=== PATIENT | male | born 1975 | race Two or more races ===

== ENCOUNTER → 2019-11-02 | Outpatient (CLI) | payer MEDICAID ==
--- NOTE | 2019-11-02 15:14 | US ---
EXAMINATION TYPE: US kidneys/renal and bladder DATE OF EXAM: 11/02/2019 COMPARISON: NONE CLINICAL HISTORY: R31.9 Blood in urine.R10.9 L flank pain. Left flank pain EXAM MEASUREMENTS: Right Kidney: 10.1 x 4.1 x 4.0 cm Left Kidney: 11 x 5.7 x 5.5 cm Right Kidney: wnl Left Kidney: wnl Bladder: wnl Bilateral Jets seen: Yes There is no evidence for hydronephrosis at this point in time. No nephrolithiasis is seen. No luis angel s are identified. The urinary bladder is anechoic. Bilateral ureteral jets are seen. Cortical medullary differentiation is maintained within the kidneys. IMPRESSION: Normal renal ultrasound
== END | disposition home or self-care (01) ==
LOC: RADUSWWP 14:37
PROVIDERS: ATTEND Family Medicine
DX: R31.9 Hematuria, unspecified (principal)
CPT/HCPCS: 76770

== ENCOUNTER → 2019-11-15 | Outpatient (CLI) | payer MEDICAID ==
[2019-11-15 11:11] LABS: African American GFR (CKD) >90 (>60 ml/min/1.73 sqM); Blood Urea Nitrogen 13 mg/dL (9-20); Non-African American GFR(CKD) >90 (>60 ml/min/1.73 sqM)
--- NOTE | 2019-11-15 13:29 | CT ---
EXAMINATION TYPE: CT abdomen pelvis w con DATE OF EXAM: 11/15/2019 COMPARISON: HISTORY: Left sided pain for [address] DLP: 1022.4 mGycm Automated exposure control for dose reduction was used. TECHNIQUE: Helical acquisition of images from the lung bases through the pelvis have been completed. CONTRAST: Performed with Oral Contrast and with IV Contrast, patient injected with 100 mL of Isovue 300. FINDINGS: Small umbilical hernia contains fat. LUNG BASES: No significant abnormality is appreciated. AORTA: No significant abnormality is appreciated. LIVER/GB: Liver shows low attenuation possibly due to hepatic steatosis, gallbladder is unremarkable. PANCREAS: No significant abnormality is seen. SPLEEN: No significant abnormality is seen. ADRENALS: No significant abnormality is seen. KIDNEYS: No significant abnormality is seen. REPRODUCTIVE ORGANS: No significant abnormality is seen BOWEL: Some wall thickening is present at the rectosigmoid junction level, coronal image #72, axial images #68 through 70. FREE AIR: No Free Air visible. ASCITES: None visible. PELVIC ADENOPATHY: None visualized. RETROPERITONEAL ADENOPATHY: No Retroperitoneal Adenopathy visible. URINARY BLADDER: No significant abnormality is seen. OSSEOUS STRUCTURES: Degenerative disc changes are present in the lumbar spine, there is a minimal re trolisthesis grade 1 L5-S1, there is associated loss of disc height, vacuum phenomenon, circumferenti al extension of endplate disc complex results in bilateral foraminal encroachment. Facet arthropathy changes are also present at the lower lumbar spine. IMPRESSION: DEGENERATIVE DISC DISEASE, CONSIDER LUMBAR MRI. ABNORMAL THICKENING OF THE COLON WALL AT THE RECTOSIG MOID JUNCTION IS INDETERMINATE. IF BOWEL SURVEILLANCE HAS NOT BEEN PERFORMED THEN IT SHOULD BE CONSID ERED. HEPATIC STEATOSIS. ADDITIONAL FINDINGS ABOVE.
--- NOTE | 2019-11-15 14:40 | NM ---
EXAMINATION TYPE: NM bone scan whole body DATE OF EXAM: 11/15/2019 COMPARISON: 11/15/2019 HISTORY: Low back pain Delayed whole-body scanning was performed following the injection of 23.1 mCi Tc 99m MDP. Images acq uired 3 hours post injection. FINDINGS: There is faint increased uptake in L4-5 and L5-S1 likely degenerative. Abnormal uptake involving the shoulders likely post arthritic. Abnormal uptake involving the sternum on the right likely related to arthritic change of the sternocl avicular joint. Faint uptake throughout the thoracic spine. There also is a slight asymmetric uptake involving the ri ght hip which can be seen with trochanteric bursitis IMPRESSION: 1. Faint uptake involving the vertebral column likely degenerative.
== END | disposition home or self-care (01) ==
LOC: RADNMMAIN 10:30
PROVIDERS: ATTEND Family Medicine
DX: K76.0 Fatty (change of) liver, not elsewhere classified (principal); K42.9 Umbilical hernia without obstruction or gangrene; K63.89 Other specified diseases of intestine; R90.89 Other abnormal findings on diagnostic imaging of central nervous system
CPT/HCPCS: 82565; 84520; 74177; 78306; 36415; A9503; Q9967

== ENCOUNTER 2019-12-07 06:56 | Day surgery (SDC) | payer MEDICAID ==
[2019-12-06 10:04] VITALS: BMI 33.7
[~2019-12-07 06:56] MED LIST: LACTATED RINGERS 1,000 ML IV SCH
[2019-12-07 07:23] VITALS: RESP 16; TEMP 97
[2019-12-07] MEDS ORDERED: LIDOCAINE 1% (10MG/ML) FOR IV START INTRADERMA ONE (07:24)
[2019-12-07 07:28] LABS: Glucose,Whole Blood 122 mg/dL (75-99)
[2019-12-07] MEDS ORDERED: PROPOFOL 10 MG/ML 20 ML VIAL IV ONE (08:19)
--- NOTE | 2019-12-07 08:46 | P.PCN ---
Date of Procedure: 12/07/19 Description of Procedure: BRIEF HISTORY: Patient is a 44-year-old male presenting for outpatient colonoscopy for findings of an abnormal computed tomography scan of the abdomen with wall thickening. Denies any change in bowel habits, blood per rectum but does report abdominal pain. No family history of colon cancer or inflammatory bowel disease. PROCEDURE PERFORMED: Colonoscopy with polypectomy. PREOPERATIVE DIAGNOSIS: Abnormal computed tomography scan of the abdomen with wall thickening, no prior colonoscopy. ESTIMATED BLOOD LOSS: Minimal. IV sedation per Anesthesia. PROCEDURE: After informed consent was obtained, the patient, was brought into the endoscopy unit. IV sedation was administered by Anesthesia under continuous monitoring. Digital rectal examination was normal. Initially the Olympus CF-190 flexible video colonoscope was then inserted in the rectum, gradually advanced into the cecum without any difficulty. Careful examination was performed as the scope was gradually being withdrawn. Ileocecal valve and the appendiceal orifice were visualized and appeared normal. Prep was excellent. Mucosa of the cecum, ascending colon, transverse colon, descending colon, sigmoid colon, and rectum appeared normal, with a somewhat redundant colon. 2 diminutive 2 mm polyps removed with cold forcep polypectomy from the rectum. One 8 mm sessile rectal polyp removed with cold snare polypectomy.. Retroflexion was performed in the rectum and no lesions were seen. The patient tolerated the procedure well. IMPRESSION: Sessile rectal polyp removed with cold snare polypectomy. 2 diminutive rectal polyps removed with cold forcep polypectomy. Somewhat redundant colon, otherwise normal-appearing colon from rectum to cecum with no masses or colitis to correspond to thickening seen on computed tomography scan . RECOMMENDATIONS: Findings of this examination were discussed with the patient. Okay to resume diet. Okay to resume medication. Await pathology from polypectomy. Would recommend repeat colonoscopy in 5 years pending pathology from polypectomy.
[2019-12-07 09:25] VITALS: BP 122/87; PULSE 70
== END 2019-12-07 09:41 | disposition home or self-care (01) ==
LOC: ORWHC2ENDO 06:56
PROVIDERS: ATTEND Internal Medicine
DX: D12.8 Benign neoplasm of rectum (principal); K63.5 Polyp of colon; Q43.8 Other specified congenital malformations of intestine; R93.3 Abnormal findings on diagnostic imaging of other parts of digestive tract; K08.89 Other specified disorders of teeth and supporting structures; E78.5 Hyperlipidemia, unspecified; E11.9 Type 2 diabetes mellitus without complications; Z79.899 Other long term (current) drug therapy; Z79.84 Long term (current) use of oral hypoglycemic drugs; Z98.890 Other specified postprocedural states
CPT/HCPCS: 45385; 45380; 88305; J2704

== ENCOUNTER → 2019-12-07 | Outpatient (CLI) | payer MEDICAID ==
--- NOTE | 2019-12-07 19:50 | MR ---
EXAMINATION TYPE: MR lumbar spine wo/w con DATE OF EXAM: 12/07/2019 COMPARISON: Correlation CT 11/15/2019 HISTORY: 44-year-old male Low back/left flank pain, DDD Technique: Multiplanar, multisequence images of the lumbar spine were obtained before and after admin istration of 9.5 mL intravenous Gadavist gadolinium contrast. FINDINGS: Vertebral body heights are preserved and alignment is maintained. Mild heterogeneous marrow signal without suspicious bone marrow replacement. Conus medullaris is normal. There is mild degenerative disc disease lower lumbar spine with desiccated and bulging discs. More mo derate degenerative disc disease L5-S1 with disc height loss and vacuum phenomenon and anterior endpl ate Schmorl's node of S1. Facet arthropathy lower lumbar spine. At L5-S1, there is a broad-based central disc protrusion impressing on the ventral thecal sac but not causing any significant spinal canal stenosis. No other focal disc herniation or significant spinal canal stenosis. On the right, changes resulting in mild neuroforaminal stenosis at L4-L5 and moderate at L5-S1 but wi th possible abutment of the exiting right L5 nerve root. On the left, changes resulting in mild neural foraminal stenosis at L4-L5 and moderate L5-S1. However , disc material at L4-L5 may abut the traversing left L5 nerve root. At L5-S1, disc material may abut the traversing left S1 nerve root. Refer to sagittal image 7. No abnormal enhancement within the spinal canal. IMPRESSION: 1. Mild degenerative disc disease lower lumbar spine, more moderate at L5-S1 with disc height loss an d vacuum phenomenon. Central disc herniation at this level does not contribute to any significant spi nal canal stenosis. 2. Additional facet arthropathy lower lumbar spine. 3. Moderate neuroforaminal stenoses at L5-S1 with possible abutment of the exiting right L5 nerve villa t at L5-S1. Mild bilateral neural foraminal stenoses at L4-L5. 4. In addition, at L4-L5, disc material may abut the traversing left L5 nerve root. At L5-S1, disc ma terial may abut the traversing left S1 nerve root. Correlate for any corresponding radicular symptoms .
== END | disposition home or self-care (01) ==
LOC: RADMRIMAIN 18:31
PROVIDERS: ATTEND Family Medicine
DX: M48.061 Spinal stenosis, lumbar region without neurogenic claudication (principal); M48.07 Spinal stenosis, lumbosacral region; M51.26 Other intervertebral disc displacement, lumbar region; M51.36 Other intervertebral disc degeneration, lumbar region; M51.37 Other intervertebral disc degeneration, lumbosacral region; M47.816 Spondylosis without myelopathy or radiculopathy, lumbar region; M19.90 Unspecified osteoarthritis, unspecified site
CPT/HCPCS: 72158; A9585

== ENCOUNTER 2021-04-15 18:32 | Emergency (ER) | payer MEDICAID ==
[2021-04-15 19:35] VITALS: BP 151/99; PULSE 84; RESP 20; TEMP 97.7
[2021-04-15] MEDS ORDERED: AMOXICILLIN 500MG STARTER PACK 3 CAP BTL PO STA (19:41)
--- NOTE | 2021-04-15 19:43 | ED ---
ENT HPI - General Stated complaint: sore throat Source: patient, family Mode of arrival: ambulatory Limitations: no limitations - History of Present Illness Initial comments: 46-year-old male who presents to the emergency department for evaluation tonsils swelling. Patient reports that earlier in the week and swelling and white discoloration of the tonsil, he thought he may have a stone in his tonsil. He has been using salt water gargling throat lozenges reports he feels like this also is causing trouble swallowing and breathing. No fevers or chills. No pain. No history of recurrent infections or tonsillitis. - Related Data Home Medications Medication Instructions Recorded Confirmed Hydrochlorothiazide(Unk Dose) 1 tab PO DAILY 12/06/19 12/07/19 Lipitor(Unknown Dose) 1 tab PO DAILY 12/06/19 12/07/19 Metformin (Unknown Dose) 1 tab PO DAILY 12/06/19 12/07/19 Norvasc( Unknown Dose) 1 tab PO DAILY 12/06/19 12/07/19 Valsarta(Unknown Dose) 1 tab PO DAILY 12/06/19 12/07/19 Vitamin D(Unknown Dose) 1 tab PO DAILY 12/06/19 12/07/19 amLODIPine [Norvasc] 10 mg PO DAILY 12/07/19 12/07/19 Allergies Allergy/AdvReac Type Severity Reaction Status Date / Time No Known Allergies Allergy Verified 04/15/21 19:35 Review of Systems ROS Statement: Those systems with pertinent positive or pertinent negative responses have been documented in the HPI. ROS Other: All systems not noted in ROS Statement are negative. Past Medical History Past Medical History: Diabetes Mellitus, Hyperlipidemia, Hypertension History of Any Multi-Drug Resistant Organisms: None Reported Past Surgical History: No Surgical Hx Reported Additional Past Surgical History / Comment(s): wisdom teeth, Additional Past Anesthesia/Blood Transfusion Reaction / Comment(s): States has never had anesthesia. Past Psychological History: No Psychological Hx Reported Smoking Status: Never smoker Past Alcohol Use History: Occasional Past Drug Use History: Marijuana - Past Family History Mother Family Medical History: No Reported History General Exam - General Exam Comments Initial Comments: Physical Exam GENERAL: Patient is well-developed and well-nourished. Patient is nontoxic and well-hydrated and is in no distress. HENT: Normocephalic, Atraumatic Left tonsil has an area of swelling appears cystlike, no erythema, no induration, no uvula displacement or edema no pain with palpation EYES: PERRL, EOMI PULMONARY: Unlabored respirations. CARDIOVASCULAR: RRR Warm and well perfused extremities ABDOMEN: Non-distended SKIN: No rashes or bruising : Deferred NEUROLOGIC: Alert and oriented Normal speech Normal gait MUSCULOSKELETAL: Moving all extremities with no apparent injury PSYCHIATRIC: No SI/HI Limitations: no limitations Course Vital Signs 04/15/21 19:30 Temperature 97.7 F Pulse Rate 84 Respiratory 20 Rate Blood Pressure 151/99 O2 Sat by Pulse 100 Oximetry Medical Decision Making - Medical Decision Making The patient was seen and evaluated, history is obtained from the patient, physical exam shows a cystlike structure in the left tonsil, no signs of infection no erythema, no exudate The patient is hemodynamically stable, no fever no tachycardia or signs of infection Patient be treated with steroids to bring down inflammation and will be started on oral antibiotics should there be any underlying infection, patient was advised that he needs to follow up with ENT for further evaluation of this cystlike structure as we cannot rule out cysts, mass or cancerous. Patient was given follow-up information for all ENT surgeons here in town and will be discharged home. Disposition Clinical Impression: Swollen tonsil Disposition: HOME SELF-CARE Condition: Stable Additional Instructions: Follow up with ENT for re-evaluation Is patient prescribed a controlled substance at d/c from ED?: No Referrals: Del Dowd MD [Primary Care Provider] - 1-2 days Agustín Clements MD [STAFF PHYSICIAN] - 1-2 days Ismael Keller DO [Doctor of Osteopathic Medicine] - 1-2 days Steve Giordano MD [STAFF PHYSICIAN] - 1-2 days
[2021-04-15] MEDS ORDERED: DEXAMETHASONE SOD PHOSPHATE 10 MG/ML 1 ML VIAL IM STA (20:07)
== END 2021-04-15 20:11 | disposition home or self-care (01) ==
LOC: EC 18:32
DX: J35.1 Hypertrophy of tonsils (principal); E11.9 Type 2 diabetes mellitus without complications; I10 Essential (primary) hypertension; E78.5 Hyperlipidemia, unspecified; Z79.84 Long term (current) use of oral hypoglycemic drugs; Z79.899 Other long term (current) drug therapy
CPT/HCPCS: 99282; 96372; J1100

== ENCOUNTER 2021-04-15 21:39 | Emergency (ER) | payer MEDICAID ==
[2021-04-15 21:46] VITALS: BP 154/96; PULSE 74; RESP 22; TEMP 97.3
--- NOTE | 2021-04-15 22:02 | ED ---
ENT HPI - General Chief complaint: ENT Stated complaint: Revisit Sore Throat Time Seen by Provider: 04/15/21 21:49 Source: patient, family, RN notes reviewed Mode of arrival: ambulatory Limitations: no limitations - History of Present Illness Initial comments: Patient is a 46-year-old male that presents to emergency department complaining of a sensation of his throat closing. He was seen in the emergency room earlier was diagnosed with a left tonsillar mucus cyst. Patient was given steroids and antibiotics and told to follow-up with ENT specialist. Patient comes back stating that the sensation of something blocking his airway still there. Patient was informed that he still needs follow ENT specialist. He denied any other issues or complaints. He notes that he is uncomfortable and is having difficulty sleeping due to the sensation. He notes that he is not having any problems breathing handling oral secretions or swallowing. He denied chest pain first breath headache nausea vomiting diarrhea constipation fever fatigue chills. - Related Data Home Medications Medication Instructions Recorded Confirmed Hydrochlorothiazide(Unk Dose) 1 tab PO DAILY 12/06/19 12/07/19 Lipitor(Unknown Dose) 1 tab PO DAILY 12/06/19 12/07/19 Metformin (Unknown Dose) 1 tab PO DAILY 12/06/19 12/07/19 Norvasc( Unknown Dose) 1 tab PO DAILY 12/06/19 12/07/19 Valsarta(Unknown Dose) 1 tab PO DAILY 12/06/19 12/07/19 Vitamin D(Unknown Dose) 1 tab PO DAILY 12/06/19 12/07/19 amLODIPine [Norvasc] 10 mg PO DAILY 12/07/19 12/07/19 Previous Rx's Medication Instructions Recorded Amoxicillin 500 mg PO BID 10 Days #20 capsule 04/15/21 Allergies Allergy/AdvReac Type Severity Reaction Status Date / Time No Known Allergies Allergy Verified 04/15/21 21:46 Review of Systems ROS Statement: Those systems with pertinent positive or pertinent negative responses have been documented in the HPI. ROS Other: All systems not noted in ROS Statement are negative. Past Medical History Past Medical History: Diabetes Mellitus, Hyperlipidemia, Hypertension History of Any Multi-Drug Resistant Organisms: None Reported Past Surgical History: No Surgical Hx Reported Additional Past Surgical History / Comment(s): wisdom teeth, Additional Past Anesthesia/Blood Transfusion Reaction / Comment(s): States has never had anesthesia. Past Psychological History: No Psychological Hx Reported Smoking Status: Never smoker Past Alcohol Use History: Occasional Past Drug Use History: Marijuana - Past Family History Mother Family Medical History: No Reported History General Exam Limitations: no limitations General appearance: alert, in no apparent distress Head exam: Present: atraumatic, normocephalic, normal inspection Eye exam: Present: normal appearance, PERRL, EOMI. Absent: scleral icterus, conjunctival injection, periorbital swelling ENT exam: Present: normal exam, mucous membranes moist, other (Cyst on the inferior pole of the left tonsil) Neck exam: Present: normal inspection Respiratory exam: Present: normal lung sounds bilaterally. Absent: respiratory distress, wheezes, rales, rhonchi, stridor Cardiovascular Exam: Present: regular rate, normal rhythm, normal heart sounds. Absent: systolic murmur, diastolic murmur, rubs, gallop, clicks GI/Abdominal exam: Present: soft, normal bowel sounds. Absent: distended, tenderness, guarding, rebound, rigid Extremities exam: Present: normal inspection, full ROM, normal capillary refill. Absent: tenderness, pedal edema, joint swelling, calf tenderness Neurological exam: Present: alert, oriented X3 Psychiatric exam: Present: normal affect, normal mood Skin exam: Present: warm, dry, intact, normal color. Absent: rash Course Vital Signs 04/15/21 21:43 Temperature 97.3 F L Pulse Rate 74 Respiratory 22 Rate Blood Pressure 154/96 O2 Sat by Pulse 100 Oximetry Medical Decision Making - Medical Decision Making 46-year-old male complaining of foreign body sensation in his throat. Upon exam patient does have a left tonsillar cyst. He was informed earlier on his previous visit that he needs to follow-up with his ENT specialist as referred to the He was informed that we will not drain in the ER due to possible worsening of his condition and/or unknown pathology of cyst. Case discussed with Dr. Ly, patient discharge home. Disposition Clinical Impression: Swollen tonsil Disposition: HOME SELF-CARE Condition: Stable Additional Instructions: Please return to the Emergency Department if symptoms worsen or any other concerns. Is patient prescribed a controlled substance at d/c from ED?: No Referrals: Del Dowd MD [Primary Care Provider] - 1-2 days Time of Disposition: 22:01
== END 2021-04-15 22:00 | disposition home or self-care (01) ==
LOC: EC 21:39
DX: J35.1 Hypertrophy of tonsils (principal); I10 Essential (primary) hypertension; E11.9 Type 2 diabetes mellitus without complications; E78.5 Hyperlipidemia, unspecified; F12.90 Cannabis use, unspecified, uncomplicated; Z79.84 Long term (current) use of oral hypoglycemic drugs
CPT/HCPCS: 99283